=== PATIENT | male | born 1970 | race African-American/Black ===

== ENCOUNTER 2023-07-25 14:03 | Outpatient (AMB) | payer OTHER, SELFPAY ==
--- NOTE | 2023-07-25 14:08 | HO.SPINEOV ---
Intake Intake Visit Reasons: Low back pain Intake Note: Mr. Dc is here today c/o right hip and leg pain/numbness. MRI done @ [place]. Radiology Equipment Servicer Required: No Assessment & Plan Assessment & Plan (1) Synovial cyst of lumbar facet joint: Code(s): M71.38 - Other bursal cyst, other site Plan Dear colleague Thank you for referring Gasper Dc to the office today with a chief complaint of right lumbar radiculopathy. HPI: This 53-year-old male the suffering from severe lumbar radiculopathy with pain radiating down his right leg to the top of his foot. He suffered from what it sounds l like a hemorrhagic stroke in December of 2021 and during rehab had several falls on stairs. The last 1 was in July 2022 and approximately 1 month later he developed severe radiating pain down his right leg. The pain is associated with numbness and tingling. The pain is constantly present and rated as 10/10. Standing is the best position. Sitting aggravates his symptoms. He denies weakness bowel or urinary problems. The following conservative treatment options were tried without success antiinflammatories, tylenol, muscle relaxants, prednisone course and physical therapy PMH: Hypertension, hypercholesterolemia, stroke Medications: Amlodipine, Lisinopril, labetalol, atorvastatin, aspirin Allergies: NKDA Social history: Disabled. Nonsmoker Physical Exam: Pleasant male in obvious agony. Straight leg raise is positive on the right side with radiating pain down his right leg. There is numbness in an L5 distribution. No weakness. No pathological reflexes. Gait is disturbed: Antalgic gait. Radiological Studies: MRI done at [facility] on 21/03/23 shows a grade 2 L4-5 spondylolisthesis and a large synovial cyst compressing the right L5 nerve root. A standing x-ray of the lumbar spine again shows the grade 2 L4-5 spondylolisthesis and degenerative disc disease L4-5 and L5-S1. Impression/Plan: This 53-year-old male is suffering from a persistent right lumbar radiculopathy not responding to conservative treatment. The L5 radiculopathy is caused by a extra dural mass, most likely a synovial cyst, compressing the right L5 nerve root. I reviewed the imaging in detail with the patient and told him that surgery would be in the solution to his pain as conservative treatments have failed. The patient has a grade 2 L4-5 spondylolisthesis and therefore there is a risk that the cyst returns after surgery. He would need a fusion if that happens. He wants to proceed and is tentatively scheduled for 10/11/2022. He will get preoperative clearance from his primary care physician. Thank you for allowing me to participate in your patients care. total time spent was 50 minutes in counseling ,coordination of plan, personal review of imaging, surgical decision making and subsequent plan Mekhi Peter MD, PhD Spine Fellowship Trained Neurosurgeon Director, [facility] Coding Level of Care Code New Pt Level 4 (37919) Diagnoses Synovial cyst of lumbar facet joint M71.38
== END 2023-07-25 14:49 | disposition home or self-care (01) ==
PROVIDERS: Referring Provider Physician Assistant; Visit Provider Neurological Surgery
DX: M71.38 Other bursal cyst, other site (principal)
CPT/HCPCS: 99204

== ENCOUNTER → 2023-07-25 14:03 | Outpatient (BNVA) | payer OTHER, SELFPAY | PROVIDERS: Referring Provider Physician Assistant; Visit Provider Neurological Surgery | DX: M71.38 Other bursal cyst, other site (principal) | CPT/HCPCS: 99202 ==

== ENCOUNTER → 2023-09-27 12:35 | Outpatient (BNV) | payer OTHER, SELFPAY | PROVIDERS: PCP Internal Medicine; Visit Provider Internal Medicine Cardiovascular Disease | DX: R00.1 Bradycardia, unspecified (principal) | CPT/HCPCS: 93010 ==

== ENCOUNTER 2023-10-11 06:08 | Day surgery (SDC) | payer OTHER, SELFPAY ==
[2023-09-26 10:21] VITALS: BMI 25.1
--- NOTE | 2023-09-27 | ECG_ITS ---
Test Reason : PREOP Blood Pressure : / mmHG Vent. Rate : 059 BPM Atrial Rate : 059 BPM P-R Int : 164 ms QRS Dur : 102 ms QT Int : 406 ms P-R-T Axes : 068 075 080 degrees QTc Int : 401 ms Sinus bradycardia Otherwise normal ECG No previous ECGs available Referred By: Negrita Mills Electronically Signed By:Harish Ramos
[2023-09-27 11:49] VITALS: BP 143/87; PULSE 60; RESP 16; O2SAT 98
--- NOTE | 2023-09-27 12:16 | P.CONAN_ITS ---
Documented by User: Negrita Mills NP 10/10/23 10:47 HPI - Anesthesia Eval Consult details Narrative: 53yo M for Right L4-5 Synoval Cyst Resection, 10/11/23 No recent illness No CP/SOB at rest. Some FINNEGAN r/t beta isabel. CVA 2021 r/t htn urgency. [facility]. Right side extremity weakness and visual disturbance residual. Holter post CVA wnl. No further cardiac f/u. Stable at 08/2023 PCP visit [facility] Active Problems Active Problems: All Active Problems (Updated 09/26/23 @ 10:36 by Roseanna Figueroa RN) Synovial cyst of lumbar facet joint (Acute) Past Medical History Medical History (Updated 09/27/23 @ 12:42 by Roseanna Figueroa RN) History of CVA (cerebrovascular accident) Hyperpiesia Hx of concussion Hx of dislocation of shoulder Arthritis Numbness Low back pain Elevated cholesterol HTN (hypertension) Family History Family history of problems with anesthesia: No Surgical History Surgical History (Updated 09/26/23 @ 10:34 by Roseanna Figueroa RN) History of shoulder surgery (~2000) Hx of wisdom tooth extraction Hx of colonoscopy (~08/2023) History of Problems with Anesthesia: No Social History Social History (Updated 09/27/23 @ 12:11 by Roseanna Figueroa RN) Are you a primary customer care professional to a significant other at home: Yes (18 month old child, co-parents, mother will assist post-op) Do you presently have visiting nurse or other home services: No Patient Tobacco Use Status: Former Tobacco user Quit Date: Tobacco use type: Cigarette Use of substances other than those prescribed or required for medical reasons: No Have you been hit, kicked, punched, or otherwise hurt by someone within the past year? If so, by whom?: No Are you DNR?: No Advance Directives: No Advance Directives Information Provided: Yes Advance Directives on File: No Recently lost weight without trying: Yes How much weight loss: 34pounds or more Eating poorly because of decreased appetite: Yes Nutrition screen score: 7 Poor oral hygiene: No Meds Allergies Allergy/AdvReac Type Severity Reaction Status Date / Time oxycodone AdvReac Severe Nausea and Verified 09/27/23 12:32 Vomiting Home Medications Medication Instructions Recorded Confirmed Last Taken Type amlodipine 10 mg tablet 10 mg PO DAILY 09/26/23 09/26/23 10/11/23 History aspirin 81 mg tablet,delayed 81 mg PO DAILY 09/26/23 09/26/23 10/04/23 History release atorvastatin 40 mg tablet 40 mg PO DAILY 09/26/23 09/26/23 10/04/23 History labetalol 200 mg tablet 200 mg PO BID 09/26/23 09/26/23 10/11/23 History lisinopril 5 mg tablet 5 mg PO DAILY 09/26/23 09/26/23 10/04/23 History methocarbamol 500 mg tablet 500 mg PO TID PRN Pain 09/26/23 09/26/23 10/04/23 History sulindac 200 mg tablet 200 mg PO BID 09/26/23 09/26/23 10/04/23 History Exam Height,Weight and Vital Signs: Height 5 ft 8 in Weight 74.843 kg Last Vital Signs Pulse 60 09/27/23 11:49 Resp 16 09/27/23 11:49 BP 143/87 H 09/27/23 11:49 Pulse Ox 98 09/27/23 11:49 O2 Del Method Room Air 09/27/23 11:49 Pertinent Lab Results Pertinent Lab Results: Lab Results 09/27/23 Range/Units 12:42 WBC 6.9 (4.8-10.8) X10*3/uL RBC 3.97 L (4.60-5.80) X10*6/uL Hgb 12.2 L (14.0-18.0) g/dl Hct 36.8 L (42.0-52.0) % MCV 92.7 (80.0-98.0) fL MCH 30.7 (27.0-33.0) pg MCHC 33.2 (31.0-36.0) g/dl RDW 13.5 (11.0-16.0) % Plt Count 431 H (160-400) X10*3/uL MPV 8.6 L (9.4-12.4) fL Absolute Nucleated RBC 0.000 (0.0-0.012) X10*3/uL Nucleated RBC % (auto) 0.0 (0.0-0.2) /100WBC Sodium 140 (135-145) mmol/L Potassium 4.2 (3.3-5.1) mmol/L Chloride 104 (96-108) mmol/L Carbon Dioxide 26 (22-29) mmol/L Anion Gap 14 (12-20) BUN 12 (9-16) mg/dL Creatinine 1.00 (0.5-1.4) mg/dL Estim Creat Clear Calc 82.6 Estimated GFR > 60 Random Glucose 91 (60-115) mg/dL Calcium 10.0 (8.4-10.2) mg/dL Narrative Narrative: EKG 09/2023 Vent. Rate : 059 BPM Atrial Rate : 059 BPM P-R Int : 164 ms QRS Dur : 102 ms QT Int : 406 ms P-R-T Axes : 068 075 080 degrees QTc Int : 401 ms Sinus bradycardia Otherwise normal ECG No previous ECGs available ECHO 2021 LV nml in size. Wall thickness LV nml. EF 55-60%. No definite WMA, but apex not well visualized. Diastolic function indeterminate LA nml in size RV nml in size. Function appears preserved.RA nml in size Airway TM Dist: >3cm Neck ROM: Full Loose/Missing/Broken Teeth: Yes (3 x molars pulled) Heart: RRR Lungs: CTAB Assessment and Plan Assessment Anesthesia Assessment: Anesthesia Plan Discussed and PAT Visit Final Anesthetic Review Family History of Problems with Anesthesia: No History of Problems with Anesthesia: No Documented by User: Darci Kumar MD 10/11/23 07:23 [facility] Past Medical History Medical History (Updated 09/27/23 @ 12:42 by Roseanna Figueroa RN) History of CVA (cerebrovascular accident) Hyperpiesia Hx of concussion Hx of dislocation of shoulder Arthritis Numbness Low back pain Elevated cholesterol HTN (hypertension) Surgical History Surgical History (Updated 09/26/23 @ 10:34 by Roseanna Figueroa RN) History of shoulder surgery (~2000) Hx of wisdom tooth extraction Hx of colonoscopy (~08/2023) Social History Social History (Updated 09/27/23 @ 12:11 by Roseanna Figueroa RN) Are you a primary customer care professional to a significant other at home: Yes (18 month old child, co-parents, mother will assist post-op) Do you presently have visiting nurse or other home services: No Patient Tobacco Use Status: Former Tobacco user Quit Date: Tobacco use type: Cigarette Use of substances other than those prescribed or required for medical reasons: No Have you been hit, kicked, punched, or otherwise hurt by someone within the past year? If so, by whom?: No Are you DNR?: No Advance Directives: No Advance Directives Information Provided: Yes Advance Directives on File: No Recently lost weight without trying: Yes How much weight loss: 34pounds or more Eating poorly because of decreased appetite: Yes Nutrition screen score: 7 Poor oral hygiene: No Meds Allergies Allergy/AdvReac Type Severity Reaction Status Date / Time oxycodone AdvReac Severe Nausea and Verified 09/27/23 12:32 Vomiting Home Medications Medication Instructions Recorded Confirmed Last Taken Type amlodipine 10 mg tablet 10 mg PO DAILY 09/26/23 09/26/23 10/11/23 History aspirin 81 mg tablet,delayed 81 mg PO DAILY 09/26/23 09/26/23 10/04/23 History release atorvastatin 40 mg tablet 40 mg PO DAILY 09/26/23 09/26/23 10/04/23 History labetalol 200 mg tablet 200 mg PO BID 09/26/23 09/26/23 10/11/23 History lisinopril 5 mg tablet 5 mg PO DAILY 09/26/23 09/26/23 10/04/23 History methocarbamol 500 mg tablet 500 mg PO TID PRN Pain 09/26/23 09/26/23 10/04/23 History sulindac 200 mg tablet 200 mg PO BID 09/26/23 09/26/23 10/04/23 History Exam Airway Mallampati Class: II Assessment and Plan Final Anesthetic Review NPO: Yes ASA Class: III Final Preanesthetic Review: No Changes in Pt Med Stat, Consent Obtained/Reviewed and Anes Risks/Benef Reviewed Patient Risk: Intermediate Procedure Risk: Intermediate Anesthetic Plan Anesthetic Plan: GA Disposition: Standard PACU
[2023-09-27 14:46] LABS: Hematocrit 36.8 % (42.0-52.0); Hemoglobin 12.2 g/dl (14.0-18.0); Mean Corpuscular HGB Conc 33.2 g/dl (31.0-36.0); Mean Corpuscular Hemoglobin 30.7 pg (27.0-33.0); Mean Corpuscular Volume 92.7 fL (80.0-98.0); Mean Platelet Volume 8.6 fL (9.4-12.4); Platelet Count 431 X10*3/uL (160-400); Red Blood Count 3.97 X10*6/uL (4.60-5.80); Red Cell Distribution Width 13.5 % (11.0-16.0); White Blood Count 6.9 X10*3/uL (4.8-10.8)
[2023-09-27 15:35] LABS: Anion Gap 14 (12-20); Blood Urea Nitrogen 12 mg/dL (9-16); Carbon Dioxide 26 mmol/L (22-29); Chloride 104 mmol/L (96-108); Creatinine Clr Calc Pharmacy 82.6; Estimated Glomerular Filt Rate > 60; Glucose Random 91 mg/dL (60-115); Potassium 4.2 mmol/L (3.3-5.1); Sodium 140 mmol/L (135-145)
[2023-10-11] VITALS (24 sets, daily range): BP systolic 82–114; BP diastolic 45–83; PULSE 63–88; RESP 14–21; TEMP 36.1–36.8; O2SAT 88–100
--- NOTE | ~2023-10-11 | FL_ITS ---
EXAMINATION: XR FLUOROSCOPY WITH IMAGES CLINICAL INFORMATION: Intraoperative fluoroscopy COMPARISON: None available. TECHNIQUE: Fluoroscopy Supervised By: [place] Fluoroscopy Time: 0 minutes. Cumulative Dose Air Kerma: 0.81 mGy. Images: 1. FINDINGS: There is a metallic instrument place at the level of the pedicle of L5. Single image acquired. FL/FL guidance in OR IMPRESSION: Please refer to operative note for full study description and findings.
[2023-10-11] MEDS: methocarbamoL 750 MG TABLET PO (06:42)
[2023-10-11] MEDS: Gabapentin 300 MG CAPSULE PO (06:42)
[2023-10-11] MEDS: Lactated Ringers 1,000 ML 100 ML IVCONT (06:48)
--- NOTE | 2023-10-11 07:21 | P.HPSUR_ITS ---
Pre-Procedural Eval Section A - 24 Hr Update-Section A only Date of Service: 10/11/23 The patient is an INPATIENT: No Changes since office visit: No Cold of Flu in the past 2 weeks, No New Medical Problems, No Changes in Medication and No Patient answered all questions The patient has been examined within 24 hours of the surgical procedure. The History & Physical has been completed within 30 days and I have reviewed it.: No Section B - Complete if H&P > 30 days Chief Complaint: Other bursal cyst, other site Allergies: Allergies Allergy/AdvReac Type Severity Reaction Status Date / Time oxycodone AdvReac Severe Nausea and Verified 09/27/23 12:32 Vomiting Review of Systems Sugical H&P ROS: Negative: Constitution, Cardiovascular, Respiratory, Neurological, Psychiatric, Hem-Onc, Allergic/Immunologic, Gastrointestinal, Genitourinary, Musculoskeletal, Integumentary, Endocrine and Eyes/Ears/Nose/Th roat Exam Surgical H&P Exam: Not Evaluated: HEENT, Not Evaluated: Heart, Not Evaluated: Lungs, Not Evaluated: Extremities, Not Evaluated: Abdomen, Not Evaluated: Skin and Not Evaluated: Neurological Plan Diagnosis/Plan: Unchanged right L4-5 decompression/synovial cyst resection Time Spent With Patient Time: Total time managing care of this patient today _5___ minutes.
--- NOTE | 2023-10-11 08:37 | W.PM.OPN ---
Operative Note Operative Note Date of Service: 10/11/23 Narrative: Preoperative Diagnosis: Extradural benign mass (synovial cyst) compressing the right L5 nerve root Operation: L4-5 Laminotomy for removal of extradural benign mass with use of microscope Consent Informed Consent was obtained for this operation. I have explained the nature, purpose and benefits of the operation. I have discussed the risks and benefit of the operation including possible complications or adverse events with patient/family. Alternative(s) were discussed with the patient with their relative benefits and risks as well as the consequences of not accepting the operation were included in obtaining consent. Surgeon: SAUL STILL MD, PHD Procedure Assisted By: Aubrey keys Description of Procedure This 53-year-old male is suffering from a right L5 lumbar radiculopathy due to a extra dural benign mass compressing the L5 nerve root. The patient was offered a removal of the mass to decompress the nervous structure. The procedure complications were explained. The patient was consented. The patient was brought to the operating room and endotracheally intubated. The patient was turned in prone position on the Enrique frame. Prep and drape was done followed by timeout. Physician web production assistant provided access. A mid lumbar incision was made followed by release of the paravertebral muscle on the right side to expose the L4-5 lamina and facet joint. An intraoperative x-ray was obtained to confirm the correct level. The microscope was brought in. I took over the procedure. The high-speed drill was used to do a L4-5 laminotomy. The flavum ligament was opened to expose the underlying thecal sac and start of the L5 nerve root. A 3. Kerrison was used to further resect the flavum ligament and immediately synovial fluid released. A large cystic mass was identified and dissected from the L5 nerve root. When the mass was completely relieved from the L5 nerve root I removed it in toto. Most likely we were dealing with a synovial cyst. A long the nerve root could be easily passed, a sign of adequate decompression of the nerve root . The microscope was removed. Hemostasis was done. Incision was closed in 2 layers. Steri-Strips were used to approximate incision. An OpSite with Tegaderm was used to cover the incision. All sponge needle counts were correct. Patient was extubated and transported in stable is to recovery room. Anesthesia: General Estimated Blood Loss (ml): Minimal Duration of Surgery: 25 Minutes Postoperative Plan: Discharge to home
--- NOTE | 2023-10-11 08:41 | PM.DS ---
DS: Providers Provider Date of Service: 10/11/23 Date of discharge: 10/11/23 Primary care physician: Darshan Munoz MD Admitting clinician: Mekhi Peter DS: Diagnosis Discharge Diagnosis (1) Synovial cyst of lumbar facet joint: Status: Acute DS: Summary Time Attestation Discharge coordination time: Less than 30 minutes Quality: Safe Use of Opioids Does Pt have an Active Cancer Diagnosis on the Problem List?: No Quality: Stroke Does the patient have a stroke diagnosis?: No Physical Exam Vital Signs: Vital Signs: Last Vital Signs Temp 97.6 F 10/11/23 06:39 Pulse 68 10/11/23 06:39 Resp 16 10/11/23 06:39 BP 108/63 10/11/23 06:39 Pulse Ox 97 10/11/23 06:39 O2 Del Method Room Air 10/11/23 06:39 BMI result Body Mass Index 25.1 Discharge Plan Discharge Patient Disposition: Home, Self-Care Referrals: Darshan Munoz MD [Primary Care Provider] - 1 Week Discharge Medications: New docusate sodium [Colace] 100 mg capsule 100 mg PO BID Qty: 20 0RF oxycodone 5 mg tablet 5 mg PO Q4H PRN (Reason: pain) Qty: 20 0RF Rx Instructions: Partial Fill upon patient request. Continued atorvastatin 40 mg tablet 40 mg PO DAILY methocarbamol 500 mg tablet 500 mg PO TID PRN (Reason: Pain) labetalol 200 mg tablet 200 mg PO BID aspirin 81 mg tablet,delayed release (DR/EC) 81 mg PO DAILY amlodipine 10 mg tablet 10 mg PO DAILY lisinopril 5 mg tablet 5 mg PO DAILY sulindac 200 mg tablet 200 mg PO BID Discharge Orders: Discharge Order (Routine); Ordered 10/11/23 Ordered By: Aubrey Jamison Diet: Advance to usual diet Activity on Discharge: As tolerated Activity Restrictions/Additional Instructions: After your spinal surgery we ask you to observe the following restrictions/guidelines: Activity: It is normal to feel some discomfort as you increase your activity, but that will improve with time. We ask you avoid heavy lifting or acitivities that cause pain. As a general rule, 8lbs is a safe limit for lifting right after surgery. Walk as much as you feel comfortable but not to exhaustion. You will feel extra tired the first few days after surgery. Stay well hydrated. It is OK to walk up and down stairs You may return to driving when you are off narcotics (such as vicodin, oxycodone, dilaudid, etc), and you are back to normal functional capacity. If you have any concerns please check with office before driving. Return to work is specific to each patient and each surgery, so please speak with your doctor/PA at first follow up. Please bring paperwork such as FMLA at that time if you need it filled out. Medications: For optimum pain control, it is best to start with a combination of 500 mg of Tylenol every 4 hours with 600 mg of Motrin every 8 hours, and use narcotics as needed in between for breakthrough pain. We will give you a short supply of narcotics after surgery (usually one weeks worth). If you need more please call the office but do not use more than prescribed. You will need to give our office 48 hours notice if you need narcotics refilled and we do not fill narcotics on weekends or evenings. If you are on a narcotic, it is a good idea to take a stool softener such as colace or senna to avoid constipation If you take blood thinner such as aspirin, Plavix, Coumadin, Effient, Eliquis etc for conditions such as Afib, DVT, Pulmonary embolus, coronary disease, stents etc please speak with your surgeon about specific details as to when you can resume these medications. You can resume NSAIDs on post op day 1 (eg: Motrin, Naproxen, etc). Follow up: Please call the office, , after surgery to arrange a 3 week follow up for wound check. Wound Care: You may remove your dressing on the first day after surgery. ?You may ?leave open to air. Please do not remove the steri strips underneath. they will fall off on their own in one week. IT IS NORMAL FOR THE WOUND TO OOZE OR BE BLOODY FOR A FEW DAYS AFTER SURGERY. ?IF THIS HAPPENS JUST PLACE NEW DRESSING OVER IT TO AVOID STAINING CLOTHES. You may shower on post op day # 1 We ask that you do not let the water soak the wound. If it does get wet, just towel dry lightly. Please do not scrub your incision or place any type of chemical/ointment on the wound. No tub baths, pools or jacuzzis for one month. If you have any leaking or redness from your wound, or fevers, please call office
[2023-10-11] MEDS: ondansetron HCL 4 MG/2 ML VIAL IVPUSH (10:23)
[2023-10-11 13:35] LABS: Glucose, Whole Blood 105 mg/dL (60-115)
== END 2023-10-11 14:35 | disposition home or self-care (01) ==
PROVIDERS: Nurse Practitioner; PCP Internal Medicine; Visit Provider Neurological Surgery
PROC: (CPT 63267; principal; 2023-10-11 07:30)
DX: M71.38 Other bursal cyst, other site (principal); I10 Essential (primary) hypertension; E78.00 Pure hypercholesterolemia, unspecified; Z86.73 Personal history of transient ischemic attack (TIA), and cerebral infarction without residual deficits; Z79.82 Long term (current) use of aspirin; Z79.02 Long term (current) use of antithrombotics/antiplatelets; Z79.899 Other long term (current) drug therapy
CPT/HCPCS: 63267; 36415; 80048; 82947; 85027; 93005; J0131; J0690; J1885; J2250; J2405; J2704; J3010

== ENCOUNTER → 2023-10-11 06:08 | Outpatient (BNV) | payer OTHER, SELFPAY | PROVIDERS: PCP Internal Medicine; Visit Provider Neurological Surgery | DX: M71.38 Other bursal cyst, other site (principal) | CPT/HCPCS: 63267; 69990; 99499 ==

== ENCOUNTER 2023-11-01 09:38 | Outpatient (AMB) | payer OTHER, SELFPAY ==
--- NOTE | 2023-11-01 09:40 | HO.SPINEOV ---
Intake Intake Visit Reasons: 1st post op Intake Note: Mr. Dc is here today for 1st post op Quarantine Officer Required: No Allergies oxycodone Adverse Reaction (Severe, Verified 09/27/23 12:32) Nausea and Vomiting Assessment & Plan Assessment & Plan (1) S/P spinal surgery: Code(s): Z98.890 - Other specified postprocedural states Plan Procedure: L4-5 Laminotomy for removal of extradural benign mass Gasper comes in today for his 1st postoperative visit. He reports he is satisfied with his surgery and has been doing much better since his procedure. He is able to ambulate well, and his shooting leg pain on the right side has receded. He still does feel some tenderness when trying to engage in more physical activities such as carrying around his 2-year-old toddler, and attempting to load the laundry machine. Overall he does feel well, and is able to ambulate around his house and walk up and down the stairs without issue. We discussed the postoperative healing course, and return to activity restrictions. 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 No new neurological deficits. Sensation grossly intact. Patient is able to ambulate well, rises from a seated position without difficulty. Incision site is closed, well healing, with no signs of drainage. We will follow-up with the patient in 6 weeks for his 2nd postoperative visit. Elvin Peter MD,PhD [facility] Coding Level of Care Code Global (33823) Diagnoses S/P spinal surgery Z98.890
== END 2023-11-01 09:56 | disposition home or self-care (01) ==
PROVIDERS: PCP Internal Medicine; Visit Provider Physician Assistant
DX: Z98.890 Other specified postprocedural states (principal)
CPT/HCPCS: 99024

== ENCOUNTER → 2023-11-01 09:38 | Outpatient (BNVA) | payer OTHER, SELFPAY | PROVIDERS: PCP Internal Medicine; Visit Provider Physician Assistant | DX: Z47.89 Encounter for other orthopedic aftercare (principal); Z98.890 Other specified postprocedural states | CPT/HCPCS: 99212 ==

== ENCOUNTER 2023-12-13 09:13 | Outpatient (AMB) | payer OTHER, SELFPAY ==
--- NOTE | 2023-12-13 09:21 | A.SPINEOV_ITS ---
Intake Intake Visit Reasons: 2nd post op Intake Note: Mr. Dc is here today for 2nd post-op Coil Assembler Required: No Allergies oxycodone Adverse Reaction (Severe, Verified 12/13/23 09:22) Nausea and Vomiting Assessment & Plan Assessment & Plan (1) S/P spinal surgery: Code(s): Z98.890 - Other specified postprocedural states Plan Procedure: L4-5 Laminotomy for removal of extradural benign mass Gasper comes in today for his 1st postoperative visit. He reports he is satisfied with the surgery and feels better than he did pre-operatively. The patient reports he is up walking around and completing the majority of his ADLs. He reports that he no longer suffers from his right-sided shooting radiculopathy. He still reports mild tightness in his low back which does lessen as he moves and stretches throughout the day. No new neurological deficits. Patient is able to ambulate well, rises from a seated position without difficulty. Incision sites are closed, well healing, with no signs of drainage. We will follow-up with the patient in 6 weeks for his 2nd postoperative visit. At that time we will get x-rays to review with the patient. Elvin Peter MD,PhD [facility] Coding Level of Care Code Global (53333) Diagnoses S/P spinal surgery Z98.890
== END 2023-12-13 09:35 | disposition home or self-care (01) ==
PROVIDERS: PCP Internal Medicine; Visit Provider Physician Assistant
DX: Z98.890 Other specified postprocedural states (principal)
CPT/HCPCS: 99024

== ENCOUNTER → 2023-12-13 09:13 | Outpatient (BNVA) | payer OTHER, SELFPAY | PROVIDERS: PCP Internal Medicine; Visit Provider Physician Assistant | DX: Z48.89 Encounter for other specified surgical aftercare (principal); Z98.890 Other specified postprocedural states | CPT/HCPCS: 99212 ==

== ENCOUNTER 2024-01-24 09:48 | Outpatient (AMB) | payer OTHER, SELFPAY ==
--- NOTE | 2024-01-24 09:48 | A.SPINEOV_ITS ---
Intake Visit Reasons: 6wk follow up Intake Note: Mr. Dc is here today for a 6 week F/u. Packer Inspector Required: No Allergies oxycodone Adverse Reaction (Severe, Verified 01/24/24 09:52) Nausea and Vomiting Assessment & Plan Assessment & Plan (1) S/P spinal surgery: Code(s): Z98.890 - Other specified postprocedural states Category: Surgical Plan: Procedure: L4-5 Laminotomy for removal of extradural benign mass Gasper comes in today for a subsequent follow-up visit after having a L4-5 laminotomy performed back in October of this year. To recap he had very good resolution of his right-sided radiculopathy, but still has quite a bit of tenderness in his low back. He states that he suspect it may be due to inactivity. We discussed the possibility of a course of physical therapy which he is very agreeable to. He states he has been to a really good physical therapy center near [facility] in the past after his stroke. He requested to return there. No new neurological deficits. Gasper is able to ambulate well and rises from seated position without difficulty. He reports no significant pain when sitting which was a preoperative complaint. Gasper will complete 6 weeks of physical therapy. He was encouraged to call the office and follow up with us after this. Elvin Peter MD,PhD [facility] Orders: Orders PT Evaluation and Treatment Today Z98.890 - Other specified postprocedural states Coding Level of Care Code Global (94653) Diagnoses S/P spinal surgery Z98.890
== END 2024-01-24 10:17 | disposition home or self-care (01) ==
PROVIDERS: PCP Internal Medicine; Visit Provider Physician Assistant
DX: Z98.890 Other specified postprocedural states (principal)
CPT/HCPCS: 99213

== ENCOUNTER → 2024-01-24 09:48 | Outpatient (BNVA) | payer OTHER, SELFPAY | PROVIDERS: PCP Internal Medicine; Visit Provider Physician Assistant | DX: Z98.890 Other specified postprocedural states (principal) | CPT/HCPCS: 99212 ==